=== PATIENT | female | born 1975 | race African-American/Black ===

== ENCOUNTER 2018-08-03 22:06 | Emergency (ER) | payer OTHER ==
[~2018-08-03] VITALS: Ht 162.5 cm; Wt 90.7 kg
[2018-08-03] MEDS ORDERED: CYCLOBENZAPRINE10 MG PO (22:35)
== END 2018-08-03 23:32 | disposition home or self-care (01) ==
LOC: ED 22:06
DX: S63.602A Unspecified sprain of left thumb, initial encounter (principal); V44.6XXA Car passenger injured in collision with heavy transport vehicle or bus in traffic accident, initial encounter; Y93.89 Activity, other specified; Y92.488 Other paved roadways as the place of occurrence of the external cause; Y99.8 Other external cause status